=== PATIENT | female | born 1995 | race Caucasian/White ===

== ENCOUNTER 2019-10-11 12:41 | Emergency (ER) | payer BC, OTHER ==
[2019-10-11 12:52] VITALS: TEMP 98; BMI 20.9
[2019-10-11] MEDS ORDERED: FAMOTIDINE 20 MG/50 ML IVPB 20 MG/50 ML MG IVPB ONE ×2 (12:58→13:15)
[2019-10-11] MEDS ORDERED: ONDANSETRON 4 MG/2 ML VIAL IVPB ONE (12:58)
[2019-10-11] MEDS ORDERED: SODIUM CHLORIDE 2,000 ML IV ONE (12:58)
[2019-10-11 13:16] LABS: BASO % 0.5 % (0-2.0); EOS % 0.7 % (0-4.5); HEMATOCRIT 43.2 % (32.4-45.2); HEMOGLOBIN 14.7 GM/dl (10.7-15.3); MCH 30.9 pg (25.7-33.7); MEAN CELL VOLUME 90.8 fl (80-96); MEAN PLT VOLUME 7.9 fl (7.5-11.1); MONO % 4.2 % (3.8-10.2); NEUT % 87.6 % (42.8-82.8); PLATELET COUNT 294 K/MM3 (134-434); RBC 4.76 M/mm3 (3.60-5.2); RDW 11.9 % (11.6-15.6)
[2019-10-11 13:23] LABS: BILIRUBIN,TOTAL 0.5 mg/dl (0.2-1); CALCIUM 8.8 mg/dl (8.5-10); CREATININE 0.5 mg/dl (0.55-1.3); MAGNESIUM 1.8 mg/dL (1.8-2.4); POTASSIUM 3.5 mmol/L (3.5-5.1)
[2019-10-11] MEDS ORDERED: ACETAMINOPHEN 1000 MG/100 ML VIAL (NON FORMULARY) IVPB ONE (14:35)
[2019-10-11] MEDS ORDERED: ACETAMINOPHEN INJECTION 100 ML IVPB ONE (14:39)
--- NOTE | 2019-10-11 14:55 | PDOC ---
History of Present Illness - General Chief Complaint: Vomiting/Diarrhea Stated Complaint: nausea and vomiting Time Seen by Provider: 10/11/19 12:58 History Source: Patient Exam Limitations: No Limitations - History of Present Illness Initial Comments: 10/11/19 14:50 Healthy 24-year-old female with no significant past medical history presents with intractable nausea/vomiting/diarrhea since last night. 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 Intermittent abdominal cramping without persistent or localized pain, chills but no measured fever, slight headache. No history of recurring GI infections, no diet changes, no history of endoscopy or colonoscopy. Starting to feel lightheaded, cannot tolerate p.o., so presents for evaluation. LMP August. No pelvic cramping or vaginal bleeding. Past History - Past Medical History Allergies/Adverse Reactions: Allergies Allergy/AdvReac Type Severity Reaction Status Date / Time No Known Allergies Allergy Verified 10/11/19 12:53 Home Medications: Ambulatory Orders Ondansetron [Zofran *Odt*] 4 mg SL BID PRN #14 od.tablet 10/11/19 COPD: No Other medical history: DENIES - Immunization History Immunization Up to Date: Yes - Psycho Social/Smoking Cessation Hx Smoking History: Never smoked Hx Alcohol Use: No Drug/Substance Use Hx: No Substance Use Type: None Review of Systems - Review of Systems Able to Perform ROS?: Yes Constitutional: Yes: Chills. No: Fever HEENTM: No: Recent change in vision Respiratory: No: Cough, Shortness of Breath Cardiac (ROS): No: Chest Pain ABD/GI: Yes: Diarrhea, Nausea, Vomiting. No: Constipated : No: Dysuria Integumentary: No: Bruising, Rash Neurological: Yes: Headache All Other Systems: Reviewed and Negative *Physical Exam - Vital Signs Last Vital Signs Temp Pulse Resp BP Pulse Ox 98 F 91 H 18 123/76 100 10/11/19 12:42 10/11/19 12:42 10/11/19 12:42 10/11/19 12:42 10/11/19 12:42 - Physical Exam 10/11/19 14:51 Vitals as noted, afebrile, heart rate 90, urine positive GENERAL: The patient is awake, alert, and fully oriented, in moderate distress actively vomiting clear water. HEAD: Normal with no signs of trauma. EYES: PERRL, EOMI, sclera anicteric, conjunctiva clear with no pallor. ENT: Oropharynx clear without exudates. Dry mucous membranes. NECK: Normal range of motion, supple without lymphadenopathy, JVD, or masses. LUNGS: Breath sounds equal, clear to auscultation bilaterally. No wheeze/ crackles. HEART: Regular rate and rhythm, normal S1 and S2 without murmur or rub. ABDOMEN: Soft/nontender/nondistended. BS wnl. No guarding or rebound. No palpable masses. No hepatosplenomegaly. Uterus not palpably enlarged or visibly gravid. EXTREMITIES: Normal range of motion, no edema. 2+ distal pulses. No cords, erythema, or tenderness. NEUROLOGICAL: Cranial nerves II through XII grossly intact. Normal speech, normal gait. PSYCH: Normal mood, normal affect. SKIN: Warm, Dry, no rashes or lesions noted. Heart Score/ECG Review #1 ECG reviewed & interpreted by me at: 13:24 General ECG Interpretation: Sinus Rhythm, Normal Rate (88), Normal Intervals ( qtc 438), No acute ischemic changes ED Treatment Course - LABORATORY CBC & Chemistry Diagram: 10/11/19 12:50 10/11/19 12:50 - ADDITIONAL ORDERS Additional order review: Laboratory Results 10/11/19 10/11/19 10/11/19 12:50 12:50 12:50 Sodium 134 L Potassium 3.5 Chloride 107 Carbon Dioxide 21 Anion Gap 6 L BUN 11.0 Creatinine 0.5 L Est GFR (CKD-EPI)AfAm 157.00 Est GFR (CKD-EPI)NonAf 135.46 Random Glucose 101 Calcium 8.8 Magnesium 1.8 Total Bilirubin 0.5 AST 18 ALT 12 L Alkaline Phosphatase 43 L Total Protein 7.0 Albumin 4.0 Lipase 76 Serum , Qual Positive 10/11/19 12:50 RBC 4.76 MCV 90.8 MCHC 34.0 RDW 11.9 MPV 7.9 Neutrophils % 87.6 H Lymphocytes % 7.0 L Monocytes % 4.2 Eosinophils % 0.7 Basophils % 0.5 - RADIOLOGY Radiology Studies Ordered: Category Date Time Status LIMITED US [US] Stat Ultrasound 10/11/19 14:12 Ordered - Medications Given in the ED: ED Medications Discontinued Medications Generic Name Dose Route Start Last Admin Trade Name Freq PRN Reason Stop Dose Admin Acetaminophen 1,000 mg 10/11/19 14:35 10/11/19 14:46 Ofirmev Injection - IVPB 10/11/19 14:36 1,000 mg ONCE ONE Administration Famotidine/Sodium Chloride 20 mg in 50 mls @ 100 mls/hr 10/11/19 12:58 13:18 Pepcid 20 Mg Premixed Ivpb - IVPB 10/11/19 13:27 100 mls/hr ONCE ONE Administration Ondansetron HCl 8 mg 10/11/19 12:58 10/11/19 13:01 Zofran Injection IVPB 10/11/19 12:59 8 mg ONCE ONE Administration Medical Decision Making - Medical Decision Making 10/11/19 14:53 Healthy 24-year-old female with no significant past medical history presents with intractable nausea/vomiting/diarrhea since last night, no peritoneal on examination to suggest focal infectious process. Likely viral gastroenteritis, hemodynamically stable without other red flags on history or physical exam. 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 Labs are within normal limits including white count of 11 LFTs and lipase are normal Patient received Zofran, Pepcid, IV fluids prior to positive test. We will check beta quantitative and ultrasound to confirm IUP Patient feels better after medications and IV fluids, resolution of vomiting for now. 10/11/19 15:36 single live IUP of 13w5d. pt updated and will f/u with OB. pt feels well, abd benign. no further vomiting, tolerating PO, urinated twice. agrees with d/c plan. will rx zofran but will hold doses unless intractable vomiting returns given possible OB risk. understands return criteria. Discharge - Discharge Information Problems reviewed: Yes Clinical Impression/Diagnosis: Vomiting and diarrhea Qualifiers: Weeks of gestation: 13 weeks Qualified Code(s): Z3A.13 - 13 weeks gestation of Condition: Improved Disposition: HOME - Additional Discharge Information Prescriptions: Ondansetron [Zofran *Odt*] 4 mg SL BID PRN #14 od.tablet PRN Reason: Nausea And/Or Vomiting - Follow up/Referral Referrals: Shiva Gregory MD [Staff Physician] - Mg Barnes MD [Staff Physician] - - Patient Discharge Instructions Patient Printed Discharge Instructions: DI for Viral Gastroenteritis -- Adult, DI for -- Discomforts and Remedies Additional Instructions: Your symptoms are likely due to a viral gastroenteritis ("stomach bug"). Blood tests showed no acute abnormalities, and you were given medications for nausea and antacid as well as IV fluid hydration. Blood tests did show a , and an ultrasound confirms a 13-week . You must follow up with an WEB PRESS OPERATOR APPRENTICE as soon as possible. Consider calling Dr. Gregory for an appointment. Activity as tolerated. Stay hydrated. Take Zofran as prescribed only as needed for persistent vomiting - there is some concern among some OB/GYNs about the effect of Zofran on , so take only after consultation. Tylenol 1000 mg every 8 hours as needed for pain. You should follow up with your primary doctor and WEB PRESS OPERATOR APPRENTICE as soon as possible regarding today's emergency department visit. Return to the emergency department for any new or concerning symptoms, particularly persistent or worsening vomiting/diarrhea or dehydration, persistent or severe abdominal pain, pelvic cramping or vaginal bleeding, fevers or chills. - Post Discharge Activity Work/Back to School Note: Back to Work
--- NOTE | 2019-10-11 15:29 | EKG ---
Test Reason : Blood Pressure : / mmHG Vent. Rate : 088 BPM Atrial Rate : 088 BPM P-R Int : 140 ms QRS Dur : 088 ms QT Int : 362 ms P-R-T Axes : 047 070 037 degrees QTc Int : 438 ms NORMAL SINUS RHYTHM CANNOT RULE OUT ANTERIOR INFARCT , AGE UNDETERMINED ABNORMAL ECG NO PREVIOUS ECGS AVAILABLE Confirmed by Phillip Preciado ([id number]) on 10/11/2019 3:28:57 PM Referred By: RIVERA YORK Confirmed By:Phillip Preciado
[2019-10-11 16:10] VITALS: BP 104/70; PULSE 78
[2019-10-11 17:10] LABS: EPITHELIAL CELLS FEW /hpf
== END 2019-10-11 16:11 | disposition home or self-care (01) ==
LOC: FER 12:41
PROC: 3E033NZ Introduction of Analgesics, Hypnotics, Sedatives into Peripheral Vein, Percutaneous Approach (ICD-10-PCS; principal; 2019-10-11)
PROC: 3E033GC Introduction of Other Therapeutic Substance into Peripheral Vein, Percutaneous Approach (ICD-10-PCS; 2019-10-11)
DX: O26.891 Other specified pregnancy related conditions, first trimester (principal); Z3A.13 13 weeks gestation of pregnancy; R11.2 Nausea with vomiting, unspecified
CPT/HCPCS: 36415; 76815-TC; 80053; 81003; 81015; 81025; 83690; 83735; 84702; 84703; 85025; 93005; 99283-25; J0131; J7030